=== PATIENT | female | born 1970 | race Caucasian/White ===

== ENCOUNTER 2023-10-05 11:33 | Day surgery (SDC) | payer BC ==
[2023-10-04 14:51] VITALS: BMI 23.3
[2023-10-05] MEDS ORDERED: ROPIVACAINE HCL 0.5% 30ML VIAL ONE (14:05)
[2023-10-05] MEDS ORDERED: DEXAMETHASONE SOD PHOSPHATE/PF 10 MG/ML SDV ONE (14:05)
[2023-10-05] MEDS ORDERED: MIDAZOLAM HCL 2 MG/2 ML SINGLE DOSE VIAL ONE (14:05)
[2023-10-05] MEDS ORDERED: oxyCODONE HCL 5 MG TABLET PO PRN (14:59)
[2023-10-05] MEDS ORDERED: ONDANSETRON 4 MG/2 ML VIAL IVPUSH PRN (14:59)
[2023-10-05] MEDS ORDERED: LACTATED RINGERS SOLUTION 1,000 ML IV SCH (15:00)
[2023-10-05] MEDS ORDERED: ceFAZolin SODIUM 1 GM VIAL ONE (15:06)
[2023-10-05] MEDS ORDERED: PROPOFOL 40 ML ONE (15:06)
[2023-10-05] MEDS ORDERED: DEXAMETHASONE SOD PHOSPHATE 4 MG/1 ML VIAL ONE ×2 (15:06→15:18)
[2023-10-05] MEDS ORDERED: KETAMINE HCL 100 MG/ML - 5ML VIAL ONE (15:09)
[2023-10-05] MEDS ORDERED: ACETAMINOPHEN INJECTION 100 ML IVPB ONE (15:09)
[2023-10-05] MEDS ORDERED: ONDANSETRON 4 MG/2 ML VIAL ONE (15:18)
[2023-10-05] MEDS ORDERED: ePHEDrine SULFATE 50 MG/1 ML AMPULE ONE (15:33)
[2023-10-05] MEDS ORDERED: TRANEXAMIC ACID 1000 MG/10 ML VIAL ONE (15:42)
[2023-10-05] MEDS ORDERED: PROPOFOL 20 ML ONE (17:21)
[2023-10-05 19:52] VITALS: TEMP 97.4
[2023-10-05 19:55] VITALS: BP 95/52; PULSE 63; RESP 16
== END 2023-10-05 19:54 | disposition home or self-care (01) ==
LOC: FASU 11:33
PROVIDERS: ATTEND Orthopaedic Surgery Sports Medicine
PROC: 0PSC04Z Reposition Right Humeral Head with Internal Fixation Device, Open Approach (ICD-10-PCS; principal; 2023-10-05 15:42)
DX: S42.251A Displaced fracture of greater tuberosity of right humerus, initial encounter for closed fracture (principal); S43.431A Superior glenoid labrum lesion of right shoulder, initial encounter; M75.01 Adhesive capsulitis of right shoulder; X58.XXXA Exposure to other specified factors, initial encounter; Y92.9 Unspecified place or not applicable; Y93.9 Activity, unspecified
CPT/HCPCS: 23630; 29806; C1713; 73030-TC-RT-FY; 81025; 94760; J0131